=== PATIENT | female | born 1995 | race Caucasian/White ===

== ENCOUNTER 2017-01-26 01:54 | Emergency (ER) | payer SELFPAY ==
[2017-01-26] MEDS ORDERED: IPRATROPIUM/ALBUTEROL 0.5-2.5 MG/3 ML AMPUL NEB ONE (03:05)
[2017-01-26] MEDS ORDERED: HYDROCODONE/ACETAMINOPHEN 5-325 MG TABLET PO ONE (03:05)
--- NOTE | 2017-01-26 03:08 | ER Document Report ---
HPI - HPI Patient complains to provider of: cough, fever Onset: Other - 4-5 days Onset/Duration: Sudden Quality of pain: Achy Severity: Severe Pain Level: 5 Context: Patient presents to the emergency department with reports of productive cough, bloody mucus feeling short of breath and flulike symptoms. Patient reports fever of 101.3. Patient reports symptoms for the past 4 days. Denies vomiting diarrhea. Reports sore throat. Reports a coworker has pneumonia. Patient reports he had an inhaler when she was younger but outgrew. Associated Symptoms: Productive cough, Fever Exacerbated by: Denies Relieved by: Denies Similar symptoms previously: No Recently seen / treated by doctor: No - DERM Skin Color: Normal Past Medical History - General Information source: Patient Last Menstrual Period: 01/12/17 - Social History Smoking Status: Current Every Day Smoker Cigarette use (# per day): Yes - 1ppd Chew tobacco use (# tins/day): No Smoking Education Provided: No Frequency of alcohol use: Rare Drug Abuse: None Occupation: [employer] Lives with: Family Family History: Reviewed & Not Pertinent Patient has suicidal ideation: No Patient has homicidal ideation: No Pulmonary Medical History: Reports: Hx Asthma - as a child Renal/ Medical History: Denies: Hx Peritoneal Dialysis Past Surgical History: Reports: Hx Oral Surgery Vertical Provider Document - CONSTITUTIONAL Agree With Documented VS: Yes Exam Limitations: No Limitations General Appearance: WD/WN, No Apparent Distress - nontoxic looking - INFECTION CONTROL TRAVEL OUTSIDE OF THE [place] IN LAST 30 DAYS: No - HEENT HEENT: Atraumatic, Normocephalic, Pharyngeal Erythema - tonsillar hypertrophy No peritonsillar abscess good clear voice no trismus. negative: Conjuctival Injection, Tympanic Membrane Red, Tympanic Membrane Bulging - NECK Neck: Normal Inspection, Supple. negative: Lymphadenopathy-Left, Lymphadenopathy-Right - RESPIRATORY Respiratory: No Respiratory Distress O2 Sat by Pulse Oximetry: 98 - CARDIOVASCULAR Cardiovascular: Regular Rhythm, Tachycardia - GI/ABDOMEN Gastrointestinal: Abdomen Soft, Abdomen Non-Tender - BACK Back: Normal Inspection - MUSCULOSKELETAL/EXTREMETIES Musculoskeletal/Extremeties: MAEW, FROM - NEURO Level of Consciousness: Awake, Alert, Appropriate Motor/Sensory: No Motor Deficit - DERM Integumentary: Warm, Dry, No Rash Course - Re-evaluation Re-evalutation: 01/26/17 03:09 Patient instructed on plan of care. Chest x-ray negative. Patient will be given [place] for her aches and pains. Also duoneb and strep test ordered. 01/26/17 06:47 - Vital Signs Vital signs: Temp Pulse Resp BP Pulse Ox 99.1 F 112 H 22 H 135/78 H 98 01/26/17 01:57 01/26/17 01:57 01/26/17 01:57 01/26/17 01:57 01/26/17 01:57 - Diagnostic Test Radiology reviewed: Image reviewed, Reports reviewed Discharge - Discharge Clinical Impression: Cough, Fever, Elevated blood pressure reading Condition: Stable Disposition: HOME, SELF-CARE Instructions: Acetaminophen, Oral Narcotic Medication ([facility]), Steroid Medication Additional Instructions: *You have been evaluated for cold symptoms today, cough, fever, sore throat, elevated blood pressure reading *Increase fluid intake as discussed *Take medication as prescribed *Use the inhaler as prescribed, 2 puffs every 4-6 hours as indicated *Monitor your temperature, take Tylenol as indicated *Follow up with a primary care provider in one week *Monitor your blood pressure. Your blood pressure was elevated today. This may be because you were anxious, in pain or because you need medication. It is important to follow up with your primary care provider for full evaluation. *Return to ED for worsening condition, changes, needs Prescriptions: Prednisone [Deltasone 10 mg Tablet] 10 mg PO ASDIR PRN #21 tablet PRN Reason: Forms: Elevated Blood Pressure, Smoking Cessation Education, Return to Work
[2017-01-26] MEDS ORDERED: HYDROCODONE/ACETAMINOPHEN 5-325 MG 6 TAB/DSPK PO PRN (04:05)
[2017-01-26] MEDS ORDERED: ALBUTEROL SULFATE HFA (90 MCG/PUFF) 8 GM MDI (1 MDI/ER DISP) IH ONE (04:05)
[2017-01-26] MEDS ORDERED: ACETAMINOPHEN 325 MG TABLET PO ONE (04:19)
[2017-01-26 04:29] VITALS: BP 105/77
== END 2017-01-26 04:26 | disposition home or self-care (01) ==
LOC: ER 01:54
DX: R05 Cough (principal); R03.0 Elevated blood-pressure reading, without diagnosis of hypertension; R50.9 Fever, unspecified; R00.0 Tachycardia, unspecified; J02.9 Acute pharyngitis, unspecified; R06.02 Shortness of breath; F17.210 Nicotine dependence, cigarettes, uncomplicated
CPT/HCPCS: 99284; 87070; 87880; 87804; 71020; J3490; J7620

== ENCOUNTER 2017-11-06 18:24 | Emergency (ER) | payer SELFPAY ==
[2017-11-06] MEDS ORDERED: CEFTRIAXONE 1 GM/D5W RTU 1 GM/50 ML RTUPB IV ONE (18:46)
[2017-11-06] MEDS ORDERED: IPRATROPIUM/ALBUTEROL 0.5-2.5 MG/3 ML AMPUL NEB ONE ×2 (19:04)
[2017-11-06] MEDS ORDERED: ACETAMINOPHEN 325 MG TABLET PO ONE (19:04)
[2017-11-06 19:15] LABS: ABSOLUTE LYMPHOCYTES (AUTO) 0.5 10^3/uL (0.5-4.7); ABSOLUTE MONOCYTES (AUTO) 0.5 10^3/uL (0.1-1.4); ABSOLUTE NEUT (AUTO) 7.6 10^3/uL (1.7-8.2); BASOPHILS % (AUTO) 0.4 % (0-2); EOSINOPHILS % (AUTO) 0.2 % (0-6); HEMATOCRIT 38.9 % (36.0-47.0); HEMOGLOBIN 13.3 g/dL (12.0-15.5); LYMPHOCYTES % (AUTO) 5.4 % (13-45); MEAN CORPUSCULAR HEMOGLOBIN 29.5 pg (27.0-33.4); MEAN CORPUSCULAR HGB CONC 34.3 g/dL (32.0-36.0); MEAN CORPUSCULAR VOLUME 86 fl (80-97); MONOCYTES % (AUTO) 5.8 % (3-13); RED BLOOD COUNT 4.53 10^6/uL (3.72-5.28); RED CELL DISTRIBUTION WIDTH 13.9 % (11.5-14.0); SEGMENTED NEUTROPHILS % (AUTO) 88.2 % (42-78); WHITE BLOOD COUNT 8.7 10^3/uL (4.0-10.5)
[2017-11-06 19:18] LABS: VENOUS BLOOD BASE EXCESS -0.7 mmol/L; VENOUS BLOOD HCO3 23.8 mmol/L (20-32); VENOUS BLOOD PH 7.4 (7.30-7.42)
[2017-11-06 19:35] LABS: ALANINE AMINOTRANSFERASE 66 U/L (9-52); ALBUMIN 4.3 g/dL (3.5-5.0); ALKALINE PHOSPHATASE 82 U/L (38-126); ANION GAP 12 (5-19); ASPARTATE AMINO TRANSFERASE 46 U/L (14-36); BILIRUBIN,DIRECT 0.2 mg/dL (0.0-0.4); BILIRUBIN,TOTAL 0.2 mg/dL (0.2-1.3); BLOOD UREA NITROGEN 9 mg/dL (7-20); CALCIUM 8.7 mg/dL (8.4-10.2); CARBON DIOXIDE 25 mmol/L (22-30); CHLORIDE 104 mmol/L (98-107); CREATININE RESULT 0.71 mg/dL (0.52-1.25); GLUCOSE 112 mg/dL (75-110); POTASSIUM 3.8 mmol/L (3.6-5.0); SODIUM 140.7 mmol/L (137-145); TOTAL PROTEIN 7.8 g/dL (6.3-8.2)
[2017-11-06] MEDS: NORMAL SALINE 1000 ML 1,000 ML IV PRN ×2 (19:36→19:38)
--- NOTE | 2017-11-06 20:06 | RADIOLOGY REPORT (SQ) ---
EXAM DESCRIPTION: CHEST PA/LAT COMPLETED DATE/TIME: 11/06/2017 7:57 pm REASON FOR STUDY: bed 19 sepsis protocol COMPARISON: 01/26/2017 EXAM PARAMETERS: NUMBER OF VIEWS: two views TECHNIQUE: Digital Frontal and Lateral radiographic views of the chest acquired. RADIATION DOSE: NA LIMITATIONS: none FINDINGS: LUNGS AND PLEURA: No opacities, masses or pneumothorax. No pleural effusion. MEDIASTINUM AND HILAR STRUCTURES: No masses or contour abnormalities. HEART AND VASCULAR STRUCTURES: Heart normal size. No evidence for failure. BONES: No acute findings. HARDWARE: None in the chest. OTHER: No other significant finding. IMPRESSION: NO SIGNIFICANT RADIOGRAPHIC FINDING IN THE CHEST. TECHNICAL DOCUMENTATION: JOB ID: [id number] [email or web address] All Rights Reserved
[2017-11-06] MEDS ORDERED: KETOROLAC TROMETHAMINE INJ/PF 30 MG/1 ML SDV IV ONE (20:57)
--- NOTE | 2017-11-06 21:09 | ER Document Report ---
ED General - General Chief Complaint: Shortness Of Breath Stated Complaint: FEVER,SHORT OF BREATH,CONGESTION Time Seen by Provider: 11/06/17 18:45 Mode of Arrival: Ambulatory Information source: Patient Notes: 22-year-old female presents with complaints of body aches fever generalized malaise. Patient notes family member had similar symptoms and was seen here 2 days prior noted to be viral syndrome TRAVEL OUTSIDE OF THE [place] IN LAST 30 DAYS: No - HPI Onset: Yesterday Onset/Duration: Sudden Quality of pain: Achy Severity: Moderate Pain Level: 2 Associated symptoms: Body/muscle aches, Productive cough, Fever Exacerbated by: Denies Relieved by: Denies Similar symptoms previously: No Recently seen / treated by doctor: No - Related Data Allergies/Adverse Reactions: Penicillins Allergy (Mild, Verified 01/26/17 01:55) Home Medications: Current Home Medications No Home Medications 11/06/17 [History] Past Medical History - Social History Smoking Status: Current Every Day Smoker Cigarette use (# per day): Yes Chew tobacco use (# tins/day): No Smoking Education Provided: No Frequency of alcohol use: None Drug Abuse: None Family History: Reviewed & Not Pertinent Patient has suicidal ideation: No Patient has homicidal ideation: No Pulmonary Medical History: Reports: Hx Asthma - as a child Renal/ Medical History: Denies: Hx Peritoneal Dialysis Past Surgical History: Reports: Hx Oral Surgery Review of Systems - Review of Systems Notes: REVIEW OF SYSTEMS: CONSTITUTIONAL : Admits fever recent illness EENT: Denies eye, ear, throat, or mouth pain or symptoms. Denies nasal or sinus congestion or discharge. Denies throat, tongue, or mouth swelling or difficulty swallowing. CARDIOVASCULAR: Denies chest pain. Denies palpitations or racing or irregular heart beat. Denies ankle edema. RESPIRATORY: Admits to cough GASTROINTESTINAL: Denies abdominal pain or distention. Denies nausea, vomiting , or diarrhea. Denies blood in vomitus, stools, or per rectum. Denies black, tarry stools. Denies constipation. GENITOURINARY: Denies difficulty urinating, painful urination, burning, frequency, blood in urine, or discharge. FEMALE GENITOURINARY: Denies vaginal bleeding, heavy or abnormal periods, irregular periods. Denies vaginal discharge or odor. MUSCULOSKELETAL: Admits body aches SKIN: Denies rash, lesions or sores. HEMATOLOGIC : Denies easy bruising or bleeding. LYMPHATIC: Denies swollen, enlarged glands. NEUROLOGICAL: Denies confusion or altered mental status. Denies passing out or loss of consciousness. Denies dizziness or lightheadedness. Denies headache. Denies weakness or paralysis or loss of use of either side. Denies problems with gait or speech. Denies sensory loss, numbness, or tingling. Denies seizures. PSYCHIATRIC: Denies anxiety or stress. Denies depression, suicidal ideation, or homicidal ideation. ALL OTHER SYSTEMS REVIEWED AND NEGATIVE. PHYSICAL EXAMINATION: GENERAL: Sick but not ill appearing. Febrile HEAD: Atraumatic, normocephalic. EYES: Pupils equal round and reactive to light, extraocular movements intact, conjunctiva are normal. ENT: Nares patent, oropharynx clear without exudates. Moist mucous membranes. NECK: Normal range of motion, supple without lymphadenopathy LUNGS: Breath sounds clear to auscultation bilaterally and equal. No wheezes rales or rhonchi. HEART: Tachycardic ABDOMEN: Soft, nontender, nondistended abdomen. No guarding, no rebound. No masses appreciated. Female : deferred Musculoskeletal: Normal range of motion, no pitting or edema. No cyanosis. NEUROLOGICAL: Cranial nerves grossly intact. Normal speech, normal gait. Normal sensory, motor exams PSYCH: Normal mood, normal affect. SKIN: Warm, Dry, normal turgor, no rashes or lesions noted. Dictation was performed using [employer] voice recognition software Physical Exam - Vital signs Vitals: Temp Pulse Resp BP Pulse Ox 102.2 F H 123 H 28 H 141/82 H 95 11/06/17 18:30 11/06/17 18:30 11/06/17 18:30 11/06/17 18:30 11/06/17 18:30 Course - Re-evaluation Re-evalutation: 11/06/17 22:56 Patient upon arrival is febrile tachycardic tachypneic, septic workup did not note any significant abnormality influenza was negative chest x-ray was normal. I believe the patient has viral syndrome. Patient overall was given 2 L of IV fluids heart rate improved significantly and it was 88 when I evaluate the patient for discharge After performing a Medical Screening Examination, I estimate there is LOW risk for ACUTE CORONARY SYNDROME, PULMONARY EMBOLI, RESPIRATORY FAILURE, SEPSIS OR MENINGITIS, thus I consider the discharge disposition reasonable. I have reevaluated this patient multiple times and no significant life threatening changes are noted. The patient and I have discussed the diagnosis and risks, and we agree with discharging home with close follow-up. We also discussed returning to the Emergency Department immediately if new or worsening symptoms occur. We have discussed the symptoms which are most concerning (e.g., changing or worsening pain, trouble swallowing or breathing, neck stiffness, fever) that necessitate immediate return. - Vital Signs Vital signs: Temp Pulse Resp BP Pulse Ox 99.4 F 123 H 17 136/82 H 97 11/06/17 22:30 11/06/17 18:30 11/06/17 22:01 11/06/17 22:01 11/06/17 22:01 - Laboratory Result Diagrams: 11/06/17 18:59 11/06/17 18:59 Laboratory results interpreted by me: 11/06/17 11/06/17 11/06/17 18:59 18:59 22:21 Seg Neutrophils % 88.2 H Lymphocytes % 5.4 L Glucose 112 H AST 46 H ALT 66 H Urine Blood SMALL H Urine Ascorbic Acid 40 H - Diagnostic Test Radiology reviewed: Image reviewed, Reports reviewed - EKG Interpretation by Me EKG shows normal: Sinus rhythm, Hume, Intervals, QRS Complexes Discharge - Discharge Clinical Impression: URI (upper respiratory infection) Qualifiers: URI type: unspecified viral URI Qualified Code(s): J06.9 - Acute upper respiratory infection, unspecified; B97.89 - Other viral agents as the cause of diseases classified elsewhere; B97.89 - Other viral agents as the cause of diseases classified elsewhere Fever Qualifiers: Fever type: unspecified Qualified Code(s): R50.9 - Fever, unspecified Condition: Stable Disposition: HOME, SELF-CARE Instructions: Upper Respiratory Illness ([facility]), Viral Syndrome ([facility]) Additional Instructions: Follow up with your physician tomorrow for further care or return to the ED IMMEDIATELY if symptoms worsen or new concerns occur. If you cannot afford to follow up with your primary care physician a list of low cost clinics have been provided at the end of your discharge papers as well.
[2017-11-06 22:22] VITALS: BP 136/82
[2017-11-06 22:49] LABS: APPEARANCE,URINE CLEAR; BILIRUBIN,URINE NEGATIVE (NEGATIVE); GLUCOSE, URINE NEGATIVE (NEGATIVE); KETONES,URINE NEGATIVE (NEGATIVE); LEUKOCYTE ESTERASE,URINE NEGATIVE (NEGATIVE); NITRITE,URINE NEGATIVE (NEGATIVE); PROTEIN,URINE NEGATIVE (NEGATIVE); URINE SPECIFIC GRAVITY 1.013; UROBILINOGEN,URINE NEGATIVE mg/dL (<2.0)
--- NOTE | 2017-11-06 23:09 | EKG REPORT ---
SEVERITY:- BORDERLINE ECG - SINUS TACHYCARDIA PROBABLE LEFT ATRIAL ABNORMALITY : Confirmed by: Sharron June 06-Nov-2017 23:07:57
== END 2017-11-06 22:31 | disposition home or self-care (01) ==
LOC: ER 18:24
DX: J06.9 Acute upper respiratory infection, unspecified (principal); B97.89 Other viral agents as the cause of diseases classified elsewhere; R53.81 Other malaise; M79.1 Myalgia; R05 Cough; R50.9 Fever, unspecified; R00.0 Tachycardia, unspecified; R06.82 Tachypnea, not elsewhere classified; F17.210 Nicotine dependence, cigarettes, uncomplicated; Z20.828 Contact with and (suspected) exposure to other viral communicable diseases; Z88.0 Allergy status to penicillin
CPT/HCPCS: 93005; 94640 ×2; 99284; 96375; 96365; 36415; 87040; 87086; 82962; 85025; 85610; 80053; 81001; 82803; 83605; 87804; 71020; 93010; J1885; J7030; J0696; J7620

== ENCOUNTER 2018-04-11 12:16 | Inpatient (IN) | payer SELFPAY ==
[2018-04-11] MEDS ORDERED: NORMAL SALINE 1000 ML 2,000 ML IV ONE (14:09)
[2018-04-11] MEDS ORDERED: ACETAMINOPHEN 325 MG TABLET PO ONE (14:09)
[2018-04-11] MEDS ORDERED: KETOROLAC TROMETHAMINE INJ/PF 30 MG/1 ML SDV IV ONE (14:12)
--- NOTE | 2018-04-11 14:22 | ER Document Report ---
ED Medical Screen (RME) - General Chief Complaint: Nausea/Vomiting Stated Complaint: FEVER,VOMITING Time Seen by Provider: 04/11/18 13:57 Mode of Arrival: Ambulatory Information source: Patient Notes: 23-year-old female presents to ED for abdominal pain to the right lower quadrant 3 days it got a little better 3 hours afterwards started then she developed a fever and then the pain came back and is been much worse. She states she has had fevers chills nausea vomiting and no appetite for the last 3 days. She states she is very dizzy because she has no appetite with his fever. She denies any vaginal discharge. Only past medical history is asthma and oral surgery. Abdominal tenderness is severe to the right she does have tenderness to the left lower quadrant to no upper abdominal pain or tenderness. I have greeted and performed a rapid initial assessment of this patient. A comprehensive ED assessment and evaluation of the patient, analysis of test results and completion of medical decision making process will be conducted by an additional ED providers. TRAVEL OUTSIDE OF THE [place] IN LAST 30 DAYS: No - Related Data Allergies/Adverse Reactions: Penicillins Allergy (Mild, Verified 01/26/17 01:55) Past Medical History Pulmonary Medical History: Reports: Hx Asthma - as a child Renal/ Medical History: Denies: Hx Peritoneal Dialysis Past Surgical History: Reports: Hx Oral Surgery Physical Exam - Vital signs Vitals: Temp Pulse Resp BP Pulse Ox 103.1 F H 118 H 20 102/76 97 04/11/18 12:22 04/11/18 12:22 04/11/18 12:22 04/11/18 12:22 04/11/18 12:22 Course - Vital Signs Vital signs: Temp Pulse Resp BP Pulse Ox 103.1 F H 118 H 20 102/76 97 04/11/18 12:22 04/11/18 12:22 04/11/18 12:22 04/11/18 12:22 04/11/18 12:22
[2018-04-11 14:58] LABS: APPEARANCE,URINE CLOUDY; BILIRUBIN,URINE NEGATIVE (NEGATIVE); COLOR,URINE YELLOW; GLUCOSE, URINE NEGATIVE (NEGATIVE); KETONES,URINE NEGATIVE (NEGATIVE); LEUKOCYTE ESTERASE,URINE LARGE (NEGATIVE); NITRITE,URINE NEGATIVE (NEGATIVE); PROTEIN,URINE 100 mg/dL (NEGATIVE); URINE SPECIFIC GRAVITY 1.024
--- NOTE | 2018-04-11 15:11 | RADIOLOGY REPORT (SQ) ---
EXAM DESCRIPTION: CHEST 2 VIEWS COMPLETED DATE/TIME: 04/11/2018 2:53 pm REASON FOR STUDY: Cough congestion fever COMPARISON: Two-view chest 11/06/2017 EXAM PARAMETERS: NUMBER OF VIEWS: two views TECHNIQUE: Digital Frontal and Lateral radiographic views of the chest acquired. RADIATION DOSE: NA LIMITATIONS: none FINDINGS: LUNGS AND PLEURA: No opacities, masses or pneumothorax. No pleural effusion. MEDIASTINUM AND HILAR STRUCTURES: No masses or contour abnormalities. HEART AND VASCULAR STRUCTURES: Heart normal size. No evidence for failure. BONES: No acute findings. HARDWARE: None in the chest. OTHER: No other significant finding. IMPRESSION: NO ACUTE RADIOGRAPHIC FINDING IN THE CHEST. TECHNICAL DOCUMENTATION: JOB ID: [id number] [employer]- All Rights Reserved Reading location - IP/workstation name: [email or web address]
[2018-04-11 15:25] LABS: ABSOLUTE BASOPHILS # (AUTO) 0.1 10^3/uL (0.0-0.2); ABSOLUTE LYMPHOCYTES (AUTO) 1.4 10^3/uL (0.5-4.7); ABSOLUTE MONOCYTES (AUTO) 1.4 10^3/uL (0.1-1.4); ABSOLUTE NEUT (AUTO) 14.6 10^3/uL (1.7-8.2); BASOPHILS % (AUTO) 0.5 % (0-2); HEMATOCRIT 40.8 % (36.0-47.0); HEMOGLOBIN 13.9 g/dL (12.0-15.5); LYMPHOCYTES % (AUTO) 8.1 % (13-45); MEAN CORPUSCULAR HEMOGLOBIN 28.5 pg (27.0-33.4); MEAN CORPUSCULAR HGB CONC 34.2 g/dL (32.0-36.0); MEAN CORPUSCULAR VOLUME 83 fl (80-97); MONOCYTES % (AUTO) 8.2 % (3-13); PLATELET COUNT 239 10^3/uL (150-450); RED BLOOD COUNT 4.89 10^6/uL (3.72-5.28); RED CELL DISTRIBUTION WIDTH 13.5 % (11.5-14.0); SEGMENTED NEUTROPHILS % (AUTO) 83.2 % (42-78); TOTAL CELLS COUNTED % (AUTO) 100 %; WHITE BLOOD COUNT 17.5 10^3/uL (4.0-10.5)
[2018-04-11 15:27] LABS: A TYPE INFLUENZA AG NEGATIVE (NEGATIVE); B INFLUENZA AG NEGATIVE (NEGATIVE)
--- NOTE | 2018-04-11 15:28 | ER Document Report ---
ED GI/ - General Mode of Arrival: Ambulatory Information source: Patient TRAVEL OUTSIDE OF THE [place] IN LAST 30 DAYS: No <OLU HARO - Last Filed: 04/11/18 16:32> <CAYLA ROBERT - Last Filed: 04/12/18 00:21> - General Chief Complaint: Nausea/Vomiting Stated Complaint: FEVER,VOMITING Time Seen by Provider: 04/11/18 13:57 Notes: Patient is a 23-year-old female who presents to the emergency department today with complaints of right sided abdominal pain. Patient states the pain has been off and on and it began a few days ago, the pain subsided, and then she became febrile. Patient denies any vaginal bleeding, vaginal discharge, or urinary symptoms. (OLU HARO) - Related Data Allergies/Adverse Reactions: Penicillins Allergy (Mild, Verified 01/26/17 01:55) Past Medical History - General Information source: Patient - Social History Smoking Status: Current Every Day Smoker Cigarette use (# per day): Yes Frequency of alcohol use: None Drug Abuse: None Lives with: Family Family History: Reviewed & Not Pertinent Patient has suicidal ideation: No Patient has homicidal ideation: No Pulmonary Medical History: Reports: Hx Asthma - as a child Past Surgical History: Reports: Hx Oral Surgery <OLU HARO - Last Filed: 04/11/18 16:32> Review of Systems - Review of Systems Constitutional: See HPI, Fever EENT: No symptoms reported Cardiovascular: No symptoms reported Respiratory: No symptoms reported Gastrointestinal: See HPI, Abdominal pain Genitourinary: No symptoms reported Female Genitourinary: denies: Vaginal discharge, Vaginal bleeding Musculoskeletal: No symptoms reported Skin: No symptoms reported Hematologic/Lymphatic: No symptoms reported Neurological/Psychological: No symptoms reported -: Yes All other systems reviewed and negative <OLU HARO - Last Filed: 04/11/18 16:32> Physical Exam - Vital signs Interpretation: Hypotensive, Tachycardic, Febrile - General General appearance: Alert In distress: Mild - HEENT Head: Normocephalic Eyes: Normal Conjunctiva: Normal Cornea: Normal Mucous membranes: Dry Pharynx: Normal - Respiratory Respiratory status: No respiratory distress Breath sounds: Normal - Cardiovascular Rhythm: Regular, Tachycardia - Abdominal Inspection: Normal Tenderness: Tender - RLQ - Back Back: CVA tenderness - R - Extremities General upper extremity: Normal inspection, Normal ROM, Normal strength General lower extremity: Normal inspection, Normal ROM, Normal strength - Neurological Neuro grossly intact: Yes Orientation: AAOx4 Marlee Coma Scale Eye Opening: Spontaneous Marlee Coma Scale Verbal: Oriented Marlee Coma Scale Motor: Obeys Commands Marlee Coma Scale Total: 15 - Psychological Associated symptoms: Normal affect, Normal mood - Skin Skin Temperature: Hot Skin Moisture: Diaphoretic Skin Color: Flushed <CAYLA ROBERT - Last Filed: 04/12/18 00:21> - Vital signs Vitals: Temp Pulse Resp BP Pulse Ox 103.1 F H 118 H 20 102/76 97 04/11/18 12:22 04/11/18 12:22 04/11/18 12:22 04/11/18 12:22 04/11/18 12:22 Course - Laboratory Result Diagrams: 04/11/18 15:05 04/11/18 15:05 <OLU HARO - Last Filed: 04/11/18 16:32> - Laboratory Result Diagrams: 04/11/18 15:05 04/11/18 15:05 <CAYLA ROBERT - Last Filed: 04/12/18 00:21> - Re-evaluation Re-evalutation: 04/11 Patient is a 23-year-old female who comes in with abdominal pain, flank pain, nausea vomiting and fever 103. Urine and CT are consistent with pyelonephritis. Due to patient's fever, tachycardia, hypotensive, meeting sepsis criteria, she will be admitted for further evaluation and IV antibiotics and fluid resuscitation. Patient is agreeable to this plan. Blood and urine cultures have been sent. Stable time of admission. (CAYLA ROBERT) - Vital Signs Vital signs: Temp Pulse Resp BP Pulse Ox 103.0 F H 107 H 20 126/77 H 98 04/11/18 20:32 04/11/18 20:32 04/11/18 20:32 04/11/18 20:32 04/11/18 20:32 - Laboratory Laboratory results interpreted by me: 04/11/18 04/11/18 04/11/18 14:40 15:05 15:05 WBC 17.5 H Seg Neutrophils % 83.2 H Lymphocytes % 8.1 L Absolute Neutrophils 14.6 H PT 15.8 H VBG pH VBG pCO2 Sodium Potassium Glucose Urine Protein 100 H Urine Blood SMALL H Urine Urobilinogen 2.0 H Ur Leukocyte Esterase LARGE H 04/11/18 04/11/18 15:05 15:05 WBC Seg Neutrophils % Lymphocytes % Absolute Neutrophils PT VBG pH 7.45 H VBG pCO2 34.2 L Sodium 136.8 L Potassium 3.4 L Glucose 139 H Urine Protein Urine Blood Urine Urobilinogen Ur Leukocyte Esterase Critical Care Note - Critical Care Note Total time excluding time spent on procedures (mins): 35 - Evaluation and management of fever, diagnosis of pyelonephritis, multiple re-evaluations, treatment of sepsis, coordination of admission, counseling of patient <CAYLA ROBERT - Last Filed: 04/12/18 00:21> Discharge <OLU HARO - Last Filed: 04/11/18 16:32> - Discharge Admitting Provider: Hospitalist - [facility] Admitted: [facility] <CAYLA ROBERT - Last Filed: 04/12/18 00:21> - Discharge Clinical Impression: Pyelonephritis, SIRS (systemic inflammatory response syndrome) Condition: Stable Disposition: ADMITTED INPATIENT Scribe Attestation: 04/12/18 00:21 I personally performed the services described in the documentation, reviewed and edited the documentation which was dictated to the scribe in my presence, and it accurately records my words and actions. (CAYLA ROBERT) Scribe Documentation - Scribe Written by Mary Alice:: Mary Alice Juarez, 04/11/2018 1653 acting as scribe for :: Alfreda <OLU HARO - Last Filed: 04/11/18 16:32>
[2018-04-11 15:29] LABS: VENOUS BLOOD BASE EXCESS -0.4 mmol/L; VENOUS BLOOD PCO2 34.2 mmHg (35-63); VENOUS BLOOD PH 7.45 (7.30-7.42)
[2018-04-11 15:44] LABS: PROTHROMBIN TIME 15.8 SEC (11.4-15.4)
[2018-04-11 15:49] LABS: ALANINE AMINOTRANSFERASE 46 U/L (9-52); ALKALINE PHOSPHATASE 67 U/L (38-126); ANION GAP 15 (5-19); ASPARTATE AMINO TRANSFERASE 36 U/L (14-36); BILIRUBIN,DIRECT 0.4 mg/dL (0.0-0.4); BILIRUBIN,TOTAL 0.6 mg/dL (0.2-1.3); BLOOD UREA NITROGEN 8 mg/dL (7-20); CALCIUM 9.2 mg/dL (8.4-10.2); CARBON DIOXIDE 24 mmol/L (22-30); CHLORIDE 98 mmol/L (98-107); GLUCOSE 139 mg/dL (75-110); POTASSIUM 3.4 mmol/L (3.6-5.0); SODIUM 136.8 mmol/L (137-145); TOTAL PROTEIN 7.4 g/dL (6.3-8.2)
--- NOTE | 2018-04-11 17:53 | RADIOLOGY REPORT (SQ) ---
EXAM DESCRIPTION: CT ABD/PELVIS WITH IV ORAL COMPLETED DATE/TIME: 04/11/2018 5:30 pm REASON FOR STUDY: Lower abdominal pain worse on the right COMPARISON: None. TECHNIQUE: CT scan of the abdomen and pelvis performed using helical scanning technique with dynamic intravenous contrast injection. No oral contrast. Images reviewed with lung, soft tissue, and bone windows. Reconstructed coronal and sagittal MPR images reviewed. Delayed images for evaluation of the urinary system also acquired. All images stored on PACS. All CT scanners at this facility use dose modulation, iterative reconstruction, and/or weight based d osing when appropriate to reduce radiation dose to as low as reasonably achievable (ALARA). [facility]: Dose Right [facility]: CareDose [facility]: Dose Right [facility]: Teradose 4D [facility]: [employer] CONTRAST TYPE AND DOSE: contrast/concentration: Isovue 370.00 mg/ml; Total Contrast Delivered: 100.0 ml; Total Saline Delivered: 71.9 ml RENAL FUNCTION: None required. The patient is less than 50 years old. RADIATION DOSE: CT Rad equipment meets quality standard of care and radiation dose reduction techniq ues were employed. CTDIvol: 21.1 mGy. DLP: 2532 mGy-cm.. LIMITATIONS: None. FINDINGS: LOWER CHEST: No significant findings. No nodules or infiltrates. LIVER: Normal size. No masses. No dilated ducts. SPLEEN: Normal size. No focal lesions. PANCREAS: No masses. No significant calcifications. No adjacent inflammation or peripancreatic fluid collections. Pancreatic duct not dilated. GALLBLADDER: No identified stones by CT criteria. No inflammatory changes to suggest cholecystitis. ADRENAL GLANDS: No significant masses or asymmetry. RIGHT KIDNEY AND URETER: No solid masses. There is a subtle area of relative decreased contrast enha ncement in the upper pole of the right kidney. This is a nonspecific finding but can be seen in wander ents with pyelonephritis. There is some minimal asymmetric soft tissue stranding in the perinephric fat which is also a nonspecific finding but can be seen in patients with renal infections. Clinical correlation is recommended. No significant calcifications. No hydronephrosis or hydroureter. LEFT KIDNEY AND URETER: No solid masses. No significant calcifications. No hydronephrosis or hydr oureter. AORTA AND VESSELS: No aneurysm. No dissection. Renal arteries, SMA, celiac without stenosis. RETROPERITONEUM: No retroperitoneal adenopathy, hemorrhage or masses. BOWEL AND PERITONEAL CAVITY: No masses or inflammatory changes. No free fluid or peritoneal masses. APPENDIX: Normal. PELVIS: No mass. No free fluid. Normal bladder. ABDOMINAL WALL: No masses. No hernias. BONES: No significant or acute findings. OTHER: No other significant finding. IMPRESSION: There is a subtle area of relative decrease contrast enhancement in the upper pole of th e right kidney and there is some minimal asymmetric soft tissue stranding in the perinephric fat on t he right. These are nonspecific findings but can be seen in patients with pyelonephritis. Clinical correlation is recommended. Other findings as noted above TECHNICAL DOCUMENTATION: JOB ID: [id number] Quality ID # [id number]: Final reports with documentation of one or more dose reduction techniques (e.g., Au tomated exposure control, adjustment of the mA and/or kV according to patient size, use of iterative reconstruction technique) 2010 [employer]- All Rights Reserved Reading location - IP/workstation name: [email or web address]
--- NOTE | 2018-04-11 18:07 | EKG REPORT ---
SEVERITY:- NORMAL ECG - INCOMPLETE ANALYSIS DUE TO MISSING DATA IN PRECORDIAL LEAD(S) SINUS RHYTHM : Confirmed by: Cheko Maldonado MD 11-Apr-2018 18:06:17
[2018-04-11] MEDS ORDERED: CEFTRIAXONE 1 GM/D5W RTU 1 GM/50 ML RTUPB IV ONE (18:15)
[2018-04-11] MEDS ORDERED: ONDANSETRON HCL INJ/PF 4 MG/2 ML SDV IV PRN (18:53)
[2018-04-11] MEDS ORDERED: ENOXAPARIN SODIUM INJ 40 MG/0.4 ML DISP.SYRIN SUBCUT ONE (19:30)
--- NOTE | 2018-04-11 19:39 | PDOC H&P ---
History of Present Illness Admission Date/PCP: 04/11/18 19:20 History of Present Illness: PARMINDER DOLAN is a 23 year old female patient with no significant medical history presented with chief complaints of 1 day history of right flank pain associated with low-grade fever. Patient denied any chills, chest pain, nausea, vomiting, dysuria, urgency, frequency or diarrhea. Her CT scan of the abdomen is compatible with pyelonephritis. And her initial blood work shows leukocytes of 18,000. Past Medical History Pulmonary Medical History: Reports: Asthma - as a child Social History Lives with: Family Smoking Status: Current Every Day Smoker Frequency of Alcohol Use: None Drugs: None - Advance Directive Resuscitation Status: Full Code Family History Family History: Reviewed & Not Pertinent, DM Parental Family History Reviewed: Yes Children Family History Reviewed: Yes Sibling(s) Family History Reviewed.: Yes Medication/Allergy Home Medications: No Home Medications 11/06/17 Allergies/Adverse Reactions: Penicillins Allergy (Mild, Verified 01/26/17 01:55) Review of Systems Constitutional: ABSENT: chills, fever(s), headache(s), weight gain, weight loss Cardiovascular: ABSENT: chest pain, dyspnea on exertion, edema, orthropnea, palpitations Respiratory: ABSENT: cough, hemoptysis Gastrointestinal: ABSENT: abdominal pain, constipation, diarrhea, hematemesis, hematochezia, nausea, vomiting Neurological: ABSENT: abnormal gait, abnormal speech, confusion, dizziness, focal weakness, syncope Psychiatric: ABSENT: anxiety, depression, homidical ideation, suicidal ideation Physical Exam Vital Signs: Temp Pulse Resp BP Pulse Ox 99.6 F 79 14 94/49 L 97 04/11/18 17:40 04/11/18 17:40 04/11/18 17:40 04/11/18 17:40 04/11/18 17:40 General appearance: PRESENT: no acute distress Head exam: PRESENT: atraumatic, normocephalic Respiratory exam: PRESENT: clear to auscultation fer. ABSENT: rales, rhonchi, wheezes GI/Abdominal exam: PRESENT: normal bowel sounds, soft. ABSENT: distended, guarding, mass, organolmegaly, rebound, tenderness Neurological exam: PRESENT: alert, awake, oriented to person, oriented to place , oriented to time, oriented to situation, CN II-XII grossly intact. ABSENT: motor sensory deficit Psychiatric exam: PRESENT: appropriate affect, normal mood. ABSENT: homicidal ideation, suicidal ideation Results Impressions: Abdomen/Pelvis CT 04/11/18 00:00 IMPRESSION: There is a subtle area of relative decrease contrast enhancement in the upper pole of the right kidney and there is some minimal asymmetric soft tissue stranding in the perinephric fat on the right. These are nonspecific findings but can be seen in patients with pyelonephritis. Clinical correlation is recommended. Other findings as noted above Chest X-Ray 04/11/18 14:11 IMPRESSION: NO ACUTE RADIOGRAPHIC FINDING IN THE CHEST. Assessment & Plan - Time Time Spent: 30 to 50 Minutes - Inpatient Certification Medical Necessity: Need Close Monitoring Due to Risk of Patient Decompensation, Need For IV Fluids, Need for IV Antibiotics
[2018-04-11] MEDS: ACETAMINOPHEN 325 MG TABLET PO PRN (20:35)
[2018-04-11] MEDS: LEVOFLOXACIN 750 MG/D5W RTU 750 MG/150 ML RTUPB IV SCH (22:30)
[2018-04-12] MEDS: ACETAMINOPHEN 325 MG TABLET PO PRN ×2 (00:11→23:16)
[2018-04-12] MEDS ORDERED: IBUPROFEN 800 MG TABLET PO ONE (01:30)
[2018-04-12] MEDS: OXYCODONE-ACETAMINOPHEN 5-325 MG TABLET PO PRN ×3 (01:31→22:20)
[2018-04-12 06:43] LABS: ABSOLUTE BASOPHILS # (AUTO) 0.1 10^3/uL (0.0-0.2); ABSOLUTE LYMPHOCYTES (AUTO) 2.1 10^3/uL (0.5-4.7); ABSOLUTE MONOCYTES (AUTO) 1.1 10^3/uL (0.1-1.4); ABSOLUTE NEUT (AUTO) 11.2 10^3/uL (1.7-8.2); BASOPHILS % (AUTO) 0.4 % (0-2); EOSINOPHILS % (AUTO) 0.1 % (0-6); HEMATOCRIT 37.9 % (36.0-47.0); HEMOGLOBIN 12.6 g/dL (12.0-15.5); LYMPHOCYTES % (AUTO) 14.8 % (13-45); MEAN CORPUSCULAR HEMOGLOBIN 28.2 pg (27.0-33.4); MEAN CORPUSCULAR HGB CONC 33.2 g/dL (32.0-36.0); MEAN CORPUSCULAR VOLUME 85 fl (80-97); MONOCYTES % (AUTO) 7.3 % (3-13); PLATELET COUNT 199 10^3/uL (150-450); RED BLOOD COUNT 4.48 10^6/uL (3.72-5.28); RED CELL DISTRIBUTION WIDTH 13.6 % (11.5-14.0); SEGMENTED NEUTROPHILS % (AUTO) 77.4 % (42-78); TOTAL CELLS COUNTED % (AUTO) 100 %; WHITE BLOOD COUNT 14.5 10^3/uL (4.0-10.5)
[2018-04-12] MEDS: LANSOPRAZOLE 30 MG TAB.RAP.DR PO SCH (06:48)
[2018-04-12 07:21] LABS: ANION GAP 17 (5-19); BLOOD UREA NITROGEN 9 mg/dL (7-20); CALCIUM 8.5 mg/dL (8.4-10.2); CARBON DIOXIDE 20 mmol/L (22-30); CHLORIDE 104 mmol/L (98-107); GLUCOSE 118 mg/dL (75-110); POTASSIUM 3.6 mmol/L (3.6-5.0)
[2018-04-12] MEDS: ENOXAPARIN SODIUM INJ 40 MG/0.4 ML DISP.SYRIN SUBCUT SCH (11:09)
--- NOTE | 2018-04-12 13:18 | PDOC PROGRESS REPORT ---
Subjective Progress Note for:: 04/12/18 Subjective:: Patient admitted with pyelonephritis. She has been started on antibiotics and states that she feels better. Urine and blood cultures are currently pending. Her white count is decreased to 14.5 from 17.5. She remains intermittently febrile with a high of 102.4 so far today. She currently denies any nausea vomiting Reason For Visit: PYELONEPHRITIS Physical Exam Vital Signs: Temp Pulse Resp BP Pulse Ox 102.4 F H 89 17 106/66 98 04/12/18 12:50 04/12/18 12:50 04/12/18 12:50 04/12/18 12:50 04/12/18 12:50 Intake & Output 04/11/18 04/12/18 04/13/18 06:59 06:59 06:59 Weight 125.3 kg General appearance: PRESENT: no acute distress, well-developed, well-nourished Head exam: PRESENT: atraumatic, normocephalic Eye exam: PRESENT: conjunctiva pink, EOMI, PERRLA. ABSENT: scleral icterus Ear exam: PRESENT: normal external ear exam Mouth exam: PRESENT: moist, tongue midline Neck exam: ABSENT: carotid bruit, JVD, lymphadenopathy, thyromegaly Respiratory exam: PRESENT: clear to auscultation fer. ABSENT: rales, rhonchi, wheezes Cardiovascular exam: PRESENT: RRR. ABSENT: diastolic murmur, rubs, systolic murmur Pulses: PRESENT: normal dorsalis pedis pul Vascular exam: PRESENT: normal capillary refill GI/Abdominal exam: PRESENT: normal bowel sounds, soft. ABSENT: distended, guarding, mass, organolmegaly, rebound, tenderness Rectal exam: PRESENT: deferred Extremities exam: PRESENT: full ROM. ABSENT: calf tenderness, clubbing, pedal edema Neurological exam: PRESENT: alert, awake, oriented to person, oriented to place , oriented to time, oriented to situation, CN II-XII grossly intact. ABSENT: motor sensory deficit Psychiatric exam: PRESENT: appropriate affect, normal mood. ABSENT: homicidal ideation, suicidal ideation Skin exam: PRESENT: dry, intact, warm. ABSENT: cyanosis, rash Results Laboratory Results: 04/12/18 06:20 04/12/18 06:20 04/12/18 04/12/18 06:20 06:20 WBC 14.5 H RBC 4.48 Hgb 12.6 Hct 37.9 MCV 85 MCH 28.2 MCHC 33.2 RDW 13.6 Plt Count 199 Seg Neutrophils % 77.4 Lymphocytes % 14.8 Monocytes % 7.3 Eosinophils % 0.1 Basophils % 0.4 Absolute Neutrophils 11.2 H Absolute Lymphocytes 2.1 Absolute Monocytes 1.1 Absolute Eosinophils 0.0 Absolute Basophils 0.1 Sodium 141.0 Potassium 3.6 Chloride 104 Carbon Dioxide 20 L Anion Gap 17 BUN 9 Creatinine 0.65 Est GFR ( Amer) > 60 Est GFR (Non-Af Amer) > 60 Glucose 118 H Calcium 8.5 Impressions: Abdomen/Pelvis CT 04/11/18 00:00 IMPRESSION: There is a subtle area of relative decrease contrast enhancement in the upper pole of the right kidney and there is some minimal asymmetric soft tissue stranding in the perinephric fat on the right. These are nonspecific findings but can be seen in patients with pyelonephritis. Clinical correlation is recommended. Other findings as noted above Chest X-Ray 04/11/18 14:11 IMPRESSION: NO ACUTE RADIOGRAPHIC FINDING IN THE CHEST. Assessment & Plan - Diagnosis (1) Pyelonephritis Is this a current diagnosis for this admission?: Yes Plan: She is currently on Levaquin as she has allergies to penicillin. Will adjust antibiotics depending on the culture results (2) Sepsis Qualifiers: Sepsis type: sepsis due to unspecified organism Qualified Code(s): A41.9 - Sepsis, unspecified organism Is this a current diagnosis for this admission?: Yes Plan: She does meet criteria for sepsis with tachycardia, hypotension, source infection of pyelonephritis as well as fever and leukocytosis. She remains septic but I expect this to resolve without resolution of her infection. We will continue crystalloids vigorously as well as all other supportive measures in addition to antibiotics - Time Time Spent with patient: 15-24 minutes Medications reviewed and adjusted accordingly: Yes Within: within 72 hours - Inpatient Certification Based on my medical assessment, after consideration of the patient's comorbidities, presenting symptoms, or acuity I expect that the services needed warrant INPATIENT care.: Yes Medical Necessity: Need For IV Fluids, Need for IV Antibiotics
[2018-04-12] MEDS: IBUPROFEN 600 MG TABLET PO PRN ×2 (13:47→21:05)
[2018-04-12] MEDS: LEVOFLOXACIN 750 MG/D5W RTU 750 MG/150 ML RTUPB IV SCH (21:05)
[2018-04-13] MEDS: LANSOPRAZOLE 30 MG TAB.RAP.DR PO SCH (05:45)
[2018-04-13 07:17] LABS: ABSOLUTE EOSINOPHILS # (AUTO) 0.1 10^3/uL (0.0-0.6); ABSOLUTE LYMPHOCYTES (AUTO) 1.8 10^3/uL (0.5-4.7); ABSOLUTE MONOCYTES (AUTO) 1.1 10^3/uL (0.1-1.4); BASOPHILS % (AUTO) 0.2 % (0-2); EOSINOPHILS % (AUTO) 0.8 % (0-6); HEMATOCRIT 36.3 % (36.0-47.0); HEMOGLOBIN 12.3 g/dL (12.0-15.5); LYMPHOCYTES % (AUTO) 18.2 % (13-45); MEAN CORPUSCULAR HEMOGLOBIN 28.5 pg (27.0-33.4); MEAN CORPUSCULAR HGB CONC 33.8 g/dL (32.0-36.0); MEAN CORPUSCULAR VOLUME 84 fl (80-97); PLATELET COUNT 197 10^3/uL (150-450); RED BLOOD COUNT 4.31 10^6/uL (3.72-5.28); RED CELL DISTRIBUTION WIDTH 13.6 % (11.5-14.0); SEGMENTED NEUTROPHILS % (AUTO) 69.8 % (42-78); TOTAL CELLS COUNTED % (AUTO) 100 %; WHITE BLOOD COUNT 10.1 10^3/uL (4.0-10.5)
[2018-04-13 07:24] LABS: ANION GAP 12 (5-19); BLOOD UREA NITROGEN 8 mg/dL (7-20); CALCIUM 8.9 mg/dL (8.4-10.2); CARBON DIOXIDE 23 mmol/L (22-30); CHLORIDE 106 mmol/L (98-107); GLUCOSE 99 mg/dL (75-110); POTASSIUM 3.7 mmol/L (3.6-5.0); SODIUM 141.4 mmol/L (137-145)
[2018-04-13] MEDS: ENOXAPARIN SODIUM INJ 40 MG/0.4 ML DISP.SYRIN SUBCUT SCH (10:02)
[2018-04-13] MEDS: IBUPROFEN 600 MG TABLET PO PRN ×2 (10:02→18:50)
--- NOTE | 2018-04-13 14:17 | PDOC PROGRESS REPORT ---
Subjective Progress Note for:: 04/13/18 Subjective:: Patient admitted with pyelonephritis. She has been started on antibiotics and states that she feels better. Unfortunately initial urine culture was contaminated and have reordered another one today. She is feeling somewhat better. He has been afebrile so far today with a T-max at 102.6 yesterday evening. Reason For Visit: PYELONEPHRITIS Physical Exam Vital Signs: Temp Pulse Resp BP Pulse Ox 98.2 F 58 L 17 97/74 L 99 04/13/18 12:37 04/13/18 12:37 04/13/18 12:37 04/13/18 12:37 04/13/18 12:37 Intake & Output 04/12/18 04/13/18 04/14/18 06:59 06:59 06:59 Intake Total 1370 Balance 1370 Weight 125.3 kg 123.7 kg General appearance: PRESENT: no acute distress, well-developed, well-nourished Head exam: PRESENT: atraumatic, normocephalic Eye exam: PRESENT: conjunctiva pink, EOMI, PERRLA. ABSENT: scleral icterus Ear exam: PRESENT: normal external ear exam Mouth exam: PRESENT: moist, tongue midline Neck exam: ABSENT: carotid bruit, JVD, lymphadenopathy, thyromegaly Respiratory exam: PRESENT: clear to auscultation fer. ABSENT: rales, rhonchi, wheezes Cardiovascular exam: PRESENT: RRR. ABSENT: diastolic murmur, rubs, systolic murmur Pulses: PRESENT: normal dorsalis pedis pul Vascular exam: PRESENT: normal capillary refill GI/Abdominal exam: PRESENT: normal bowel sounds, soft. ABSENT: distended, guarding, mass, organolmegaly, rebound, tenderness Rectal exam: PRESENT: deferred Extremities exam: PRESENT: full ROM. ABSENT: calf tenderness, clubbing, pedal edema Neurological exam: PRESENT: alert, awake, oriented to person, oriented to place , oriented to time, oriented to situation, CN II-XII grossly intact. ABSENT: motor sensory deficit Psychiatric exam: PRESENT: appropriate affect, normal mood. ABSENT: homicidal ideation, suicidal ideation Skin exam: PRESENT: dry, intact, warm. ABSENT: cyanosis, rash Results Laboratory Results: 04/13/18 06:34 04/13/18 06:35 04/13/18 04/13/18 06:34 06:35 WBC 10.1 RBC 4.31 Hgb 12.3 Hct 36.3 MCV 84 MCH 28.5 MCHC 33.8 RDW 13.6 Plt Count 197 Seg Neutrophils % 69.8 Lymphocytes % 18.2 Monocytes % 11.0 Eosinophils % 0.8 Basophils % 0.2 Absolute Neutrophils 7.0 Absolute Lymphocytes 1.8 Absolute Monocytes 1.1 Absolute Eosinophils 0.1 Absolute Basophils 0.0 Sodium 141.4 Potassium 3.7 Chloride 106 Carbon Dioxide 23 Anion Gap 12 BUN 8 Creatinine 0.71 Est GFR ( Amer) > 60 Est GFR (Non-Af Amer) > 60 Glucose 99 Calcium 8.9 Impressions: Abdomen/Pelvis CT 04/11/18 00:00 IMPRESSION: There is a subtle area of relative decrease contrast enhancement in the upper pole of the right kidney and there is some minimal asymmetric soft tissue stranding in the perinephric fat on the right. These are nonspecific findings but can be seen in patients with pyelonephritis. Clinical correlation is recommended. Other findings as noted above Chest X-Ray 04/11/18 14:11 IMPRESSION: NO ACUTE RADIOGRAPHIC FINDING IN THE CHEST. Assessment & Plan - Diagnosis (1) Pyelonephritis Is this a current diagnosis for this admission?: Yes Plan: She is currently on Levaquin as she has allergies to penicillin. We will continue with Levaquin as she seems to be responding to this (2) Sepsis Qualifiers: Sepsis type: sepsis due to unspecified organism Qualified Code(s): A41.9 - Sepsis, unspecified organism Is this a current diagnosis for this admission?: Yes Plan: Secondary to pyelonephritis. This is resolving (3) Morbid obesity Is this a current diagnosis for this admission?: Yes Plan: Weight loss encouraged - Time Time Spent with patient: 15-24 minutes Medications reviewed and adjusted accordingly: Yes Anticipated discharge: Home Within: within 48 hours - Inpatient Certification Based on my medical assessment, after consideration of the patient's comorbidities, presenting symptoms, or acuity I expect that the services needed warrant INPATIENT care.: Yes Medical Necessity: Need for IV Antibiotics - Plan Summary Plan Summary: If she remains able over the next 24 hours she likely can be discharged in a day or 2
[2018-04-13] MEDS ORDERED: LEVOFLOXACIN 750 MG TABLET PO SCH (22:00)
[2018-04-14] MEDS: IBUPROFEN 600 MG TABLET PO PRN (01:30)
[2018-04-14] MEDS: OXYCODONE-ACETAMINOPHEN 5-325 MG TABLET PO PRN (02:30)
[2018-04-14] MEDS: LANSOPRAZOLE 30 MG TAB.RAP.DR PO SCH (05:05)
--- NOTE | 2018-04-14 08:36 | PDOC DISCHARGE SUMMARY ---
General - Admit/Disc Date/PCP Admission Date/Primary Care Provider: 04/11/18 19:20 Discharge Date: 04/14/18 - Discharge Diagnosis (1) Pyelonephritis Is this a current diagnosis for this admission?: Yes (2) Tobacco dependence Is this a current diagnosis for this admission?: Yes (3) Morbid obesity Is this a current diagnosis for this admission?: Yes (4) Sepsis Is this a current diagnosis for this admission?: Yes - Additional Information Resuscitation Status: Full Code Discharge Diet: As Tolerated Discharge Activity: Activity As Tolerated Prescriptions: Levofloxacin [Levaquin 750 mg Tablet] 750 mg PO QHS #3 tablet Home Medications: Levofloxacin [Levaquin 750 mg Tablet] 750 mg PO QHS #3 tablet 04/14/18 History of Present Illness History of Present Illness: PARMINDER DOLAN is a 23 year old female patient with no significant medical history presented with chief complaints of 1 day history of right flank pain associated with low-grade fever. Patient denied any chills, chest pain, nausea, vomiting, dysuria, urgency, frequency or diarrhea. Her CT scan of the abdomen is compatible with pyelonephritis. And her initial blood work shows leukocytes of 18,000. Hospital Course Hospital Course: Patient has been managed with IV fluids for hypotension, Levaquin for UTI and sepsis, Motrin and Tylenol for fever and oxycodone for pain. Patient remained febrile for more than 24 hours. She is able to eat and tolerate well. During her stay patient counseled for obesity and tobacco dependence. She is encouraged to quit smoking and to do lifestyle modification for her obesity and she voices agreement. Today on the day of discharge I seen patient resting in bed comfortably she is not in pain or any form of cardiorespiratory distress. I will discharge her with Levaquin 750 mg p.o. daily for 3 days. End of dictation I spent 75 minutes to coordinate this discharge. Physical Exam Vital Signs: Temp Pulse Resp BP Pulse Ox 97.9 F 58 L 16 101/62 100 04/14/18 03:47 04/14/18 03:47 04/14/18 03:47 04/14/18 03:47 04/14/18 03:47 Intake & Output 04/13/18 04/14/18 04/15/18 06:59 06:59 06:59 Intake Total 1370 1895 Balance 1370 1895 Weight 123.7 kg 130 kg General appearance: PRESENT: no acute distress Eye exam: PRESENT: conjunctiva pink, EOMI, PERRLA. ABSENT: scleral icterus Respiratory exam: PRESENT: clear to auscultation fer. ABSENT: rales, rhonchi, wheezes Cardiovascular exam: PRESENT: RRR. ABSENT: diastolic murmur, rubs, systolic murmur GI/Abdominal exam: PRESENT: normal bowel sounds, soft. ABSENT: distended, guarding, mass, organolmegaly, rebound, tenderness Extremities exam: PRESENT: full ROM. ABSENT: calf tenderness, clubbing, pedal edema Neurological exam: PRESENT: alert, awake, oriented to person, oriented to place , oriented to time, oriented to situation, CN II-XII grossly intact. ABSENT: motor sensory deficit Psychiatric exam: PRESENT: appropriate affect, normal mood. ABSENT: homicidal ideation, suicidal ideation Results Laboratory Results: 04/13/18 06:34 04/13/18 06:35 Impressions: Abdomen/Pelvis CT 04/11/18 00:00 IMPRESSION: There is a subtle area of relative decrease contrast enhancement in the upper pole of the right kidney and there is some minimal asymmetric soft tissue stranding in the perinephric fat on the right. These are nonspecific findings but can be seen in patients with pyelonephritis. Clinical correlation is recommended. Other findings as noted above Chest X-Ray 04/11/18 14:11 IMPRESSION: NO ACUTE RADIOGRAPHIC FINDING IN THE CHEST. Qualifiers - * PATIENT BEING DISCHARGED WITH ANY OF THE FOLLOWING DIAGNOSIS: No
[2018-04-14 08:55] VITALS: BP 99/53
== END 2018-04-14 10:18 | disposition home or self-care (01) | DRG 872 ==
LOC: ER 12:16 → EH 19:20 → 2S 21:10
PROVIDERS: ADMIT Internal Medicine; ATTEND Internal Medicine
DX: A41.9 Sepsis, unspecified organism (principal); N12 Tubulo-interstitial nephritis, not specified as acute or chronic; Z68.41 Body mass index [BMI] 40.0-44.9, adult; F17.210 Nicotine dependence, cigarettes, uncomplicated; E66.01 Morbid (severe) obesity due to excess calories; Z88.0 Allergy status to penicillin; Z83.3 Family history of diabetes mellitus
CPT/HCPCS: 36415; 71046; 74177; 80048; 80053; 81001; 81025; 82803; 83605; 84703; 85025; 85610; 87040; 87086; 87804; 93005; 93010; 96361; 96365; 99291; J0696; J1650; J1956; J7030

== ENCOUNTER 2020-05-24 08:47 | Emergency (ER) | payer SELFPAY ==
[2020-05-24] MEDS ORDERED: DEXAMETHASONE SOD PHOS INJ 10 MG/1 ML VIAL IM ONE (11:13)
--- NOTE | 2020-05-24 11:20 | ER Document Report ---
ED ENT - General Chief Complaint: Nasal Congestion Stated Complaint: NASAL CONGESTION Time Seen by Provider: 05/24/20 10:02 Notes: 25-year-old female presents to the emergency department with a complaint of nasal congestion and drainage for the past 2 weeks. Apparently she was seen at an urgent care, a coronavirus test was performed which was negative. Patient was treated with Flonase and Mucinex. She states that the medications have not been useful. She apparently was seen a second time, a second coronavirus test was performed which was negative. She is now presenting to the emergency department requesting antibiotic for her symptoms. She describes a clear nasal drainage, no facial pain, no fever and no productive cough. TRAVEL OUTSIDE OF THE [place] IN LAST 30 DAYS: No - Related Data Allergies/Adverse Reactions: Penicillins Allergy (Mild, Verified 05/24/20 09:01) Past Medical History - Social History Smoking Status: Former Smoker Family History: Reviewed & Not Pertinent, DM Pulmonary Medical History: Reports: Hx Asthma - as a child Renal/ Medical History: Denies: Hx Peritoneal Dialysis Psychiatric Medical History: Denies: Hx Depression Past Surgical History: Reports: Hx Oral Surgery Review of Systems - Review of Systems Notes: Constitutional: Negative for fever. HENT: + Nasal congestion + nasal drainage Eyes: Negative for visual changes. Cardiovascular: Negative for chest pain. Respiratory: Negative for shortness of breath. Gastrointestinal: Negative for abdominal pain, vomiting or diarrhea. Genitourinary: Negative for dysuria. Musculoskeletal: Negative for back pain. Skin: Negative for rash. Neurological: Negative for headaches, weakness or numbness. 10 point ROS negative except as marked above and in HPI. Physical Exam - Vital signs Vitals: Temp Pulse Resp BP Pulse Ox 97.5 F 66 20 131/75 H 97 05/24/20 08:51 05/24/20 08:51 05/24/20 08:51 05/24/20 08:51 05/24/20 08:51 - Notes Notes: PHYSICAL EXAMINATION: Physical Exam: General: Well-nourished well-developed in no acute distress HEENT: NC/AT, pupils equal round and reactive to light, MM moist,nares congestion, oropharynx clear, airway patent Neck: supple, no adenopathy, no masses. Good range of motion Lungs: clear, no wheezing, no rales no rhonchi CVS: Regular rate and rhythm no murmur gallop or rub Abdomen: Soft, active, nontender, no masses, no hepatosplenomegaly Ext: No edema, clubbing or cyanosis. Neuro: Alert and responsive, moving all 4 extremities on command, cranial nerves intact, no focal findings Skin: Intact no open lesions, no rash PSYCH: Normal mood, normal affect. Course - Re-evaluation Re-evalutation: 05/24/20 11:16 Patient has symptoms of allergic rhinitis or viral upper respiratory tract infection, will treat with full course of steroid and antihistamine. She is given Decadron in the emergency room a prescription for prednisone and hydroxyzine. Advised her to follow-up with her primary care doctor or return to emergency department if needed. - Vital Signs Vital signs: Temp Pulse Resp BP Pulse Ox 97.5 F 66 20 131/75 H 97 05/24/20 08:51 05/24/20 08:51 05/24/20 08:51 05/24/20 08:51 05/24/20 08:51 Discharge - Discharge Clinical Impression: Post-nasal drip Rhinitis Qualifiers: Rhinitis type: unspecified Qualified Code(s): J31.0 - Chronic rhinitis Condition: Good Disposition: HOME, SELF-CARE Instructions: Non-Sedating Prescription Antihistamine ([facility]) Additional Instructions: You were seen in emergency department today and diagnosed with rhinitis and postnasal drip. You are given a steroid and a prescription antihistamine. Please take the medications as prescribed and follow-up with your primary care doctor as needed. If your symptoms are worsening or if you have other concerns you may return to the emergency department for further evaluation and treatment. HOME CARE INSTRUCTIONS & INFORMATION: Thank you for choosing us for your medical needs. We hope you're satisfied with the care you received. After you leave, you must properly care for your problem and, at the same time, observe its progress. Any condition can change. Some illnesses can change rapidly over hours or days. If your condition worsens, return to the Emergency Department or see your physician promptly. ABOUT YOUR X-RAYS AND EKG'S: If you had an EKG or X-rays taken, they have been read by the Emergency Physician. The X-rays and EKG's will also be read by a Radiologist or Washer Hand within 24 hours. If discrepancies are noted, you will be notified by telephone. Please be certain the ED has a correct telephone number & address where you can be reached. Also, realize that some fractures or abnormalities do not show up on initial X-rays. If your symptoms continue, see your physician. ABOUT YOUR LABORATORY TEST: If you had laboratory tests, the results have been reviewed by the Emergency Physician. Some test results (for example cultures) may not be available for several days. You will be contacted if any test result shows you need additional treatment. Please be certain the ED has a correct telephone number and address where you can be reached. ABOUT YOUR MEDICATIONS: You will receive instructions on how to take your medicine on the prescription label you receive. Additional information may be provided by the Pharmacy. If you have questions afterwards, call the ED for clarification or further instructions. Some prescribed medications may cause drowsiness. Do not perform tasks such as driving a car or operating machinery without consulting your Pharmacist. If you feel you need a refill of pain medication, your condition will need re-evaluation. Please do not call for a refill of any medication. ABOUT YOUR SIGNATURE: Signature of this document acknowledges to followin. Understanding that you received emergency treatment and that you may be released before al medical problems are known or treated. Please be certain the ED has a correct phone number & address where you can be reached. 2. Acknowledgement that you will arrange for follow-up care as recommended. 3. Authorization for the Emergency Physician to provide information to your follow-up Physician in order to maximize your care. AT ANY TIME, IF YOUR SYMPTOMS CHANGE SIGNIFICANTLY OR WORSEN OR YOU DEVELOP NEW SYMPTOMS, RETURN TO THE EMERGENCY DEPARTMENT IMMEDIATELY FOR RE-EVALUATION. OUR GOAL IS TO PROVIDE EXCELLENT MEDICAL CARE! WE HOPE THAT WE HAVE MET YOUR EXPECTATIONS DURING YOUR EMERGENCY DEPARTMENT VISIT AND THAT YOU FEEL YOU HAVE RECEIVED EXCELLENT CARE! Prescriptions: Prednisone [Deltasone 20 mg Tablet] 1 tab PO BID 5 Days #10 tablet Hydroxyzine Pamoate [Vistaril 25 mg Capsule] 25 mg PO Q6 #20 capsule
[2020-05-24 11:36] VITALS: BP 123/83
== END 2020-05-24 11:37 | disposition home or self-care (01) ==
LOC: ER 08:47
DX: J31.0 Chronic rhinitis (principal); R09.81 Nasal congestion; R09.82 Postnasal drip; Z87.891 Personal history of nicotine dependence; Z88.0 Allergy status to penicillin
CPT/HCPCS: 99283; 96372; J1100